=== PATIENT | female | born 2000 | race Caucasian/White ===

== ENCOUNTER 2020-06-07 17:00 | Emergency (ER) | payer OTHER ==
[~2020-06-07] VITALS: Ht 162.6 cm; Wt 65.8 kg
[~2020-06-07 17:00] MED LIST: BIRTH CONTROL PILL PO
[2020-06-07] MEDS ORDERED: CELEXA 10 MG TA10 M1 PO (17:12)
[2020-06-07 18:07] VITALS: BP 138/72
== END 2020-06-07 18:08 | disposition home or self-care (01) ==
LOC: M.ERS 17:00
DX: Z20.828 Contact with and (suspected) exposure to other viral communicable diseases (principal)